=== PATIENT | female | born 1975 | race Caucasian/White ===

== ENCOUNTER → 2017-04-17 | Outpatient (CLI) | payer OTHER | LOC: FIMAGING 14:05 | PROVIDERS: ATTEND Obstetrics & Gynecology | DX: N85.4 Malposition of uterus (principal); D25.1 Intramural leiomyoma of uterus ==

== ENCOUNTER → 2017-06-18 | Outpatient (CLI) | payer OTHER ==
[~2017-06-18] MED LIST: GADOBUTROL 10 ML VIAL IVP ONE
== END ==
LOC: FIMAGING 15:55
PROVIDERS: ATTEND Radiology Diagnostic Radiology
DX: R10.2 Pelvic and perineal pain (principal); D25.9 Leiomyoma of uterus, unspecified
CPT/HCPCS: A9585

== ENCOUNTER 2017-12-04 07:26 | Observation (INO) | payer OTHER ==
[2017-12-04] MEDS ORDERED: NALOXONE HCL 0.4 MG/ML INJ IVP PRN ×2 (07:29→07:48)
[2017-12-04] MEDS ORDERED: HEPARIN 10,000 UNIT/10 ML MDV (1,000 UNIT/ML) IVP PRN (07:29)
[2017-12-04] MEDS ORDERED: KETOROLAC 30 MG/1 ML SDV IVP ONE (07:29)
[2017-12-04] MEDS ORDERED: FLUMAZENIL 0.5 MG/5 ML MDV IVP PRN (07:29)
[2017-12-04] MEDS ORDERED: MIDAZOLAM 2 MG/2 ML VIAL IVP PRN (07:29)
[2017-12-04] MEDS ORDERED: DEXAMETHASONE 10 MG/ML VIAL IVP ONE (07:29)
[2017-12-04] MEDS ORDERED: SCOPOLAMINE HYDROBROMIDE 1 MG/3 DAYS PATCH TD ONE ×2 (07:29→07:37)
[2017-12-04] MEDS ORDERED: PROTAMINE SULFATE 50 MG/5 ML VIAL IVP PRN (07:29)
[2017-12-04] MEDS ORDERED: fentaNYL 100 MCG/2 ML INJ IVP PRN (07:29)
[2017-12-04] MEDS ORDERED: ALTEPLASE 2 MG VIAL IVP PRN (07:29)
[2017-12-04] MEDS ORDERED: MEPERIDINE 25 MG/ML SYR IVP PRN (07:29)
[2017-12-04] MEDS ORDERED: NS 1,000 ML IV ONE (07:29)
[2017-12-04] MEDS ORDERED: GLUCAGON HCL 1 MG VIAL IVP PRN (07:29)
[2017-12-04] MEDS ORDERED: KETOROLAC 15 MG/1 ML SDV ONE (07:37)
[2017-12-04] MEDS ORDERED: DEXAMETHASONE 10 MG/ML VIAL ONE (07:37)
[2017-12-04] MEDS ORDERED: HYDROmorphONE/DILAUDID 6 MG/30 ML PCA IV PRN (07:48)
[2017-12-04] MEDS ORDERED: IOPAMIDOL (ISOVUE-300) 100 ML BTL ONE ×2 (08:02→14:22)
[2017-12-04] MEDS ORDERED: fentaNYL 100 MCG/2 ML INJ ONE (09:09)
[2017-12-04] MEDS ORDERED: FLUMAZENIL 0.5 MG/5 ML MDV IVP ONE (09:09)
[2017-12-04] MEDS ORDERED: MIDAZOLAM 2 MG/2 ML VIAL ONE ×2 (09:09→09:10)
--- NOTE | 2017-12-04 09:24 | PDGENHP ---
History & Physical Chief Complaint: UTERINE FIBROIDS. History of Present Illness: HEAVY MENSTRATION. Pertinent Past, Social, Family History: 2006 ENDOMETRIOSIS WITH URETERAL REPAIR. LT HIP POST TRAUMATIC SWELLING. Relevant Physical Exam: NO PAIN. IN NO DISTRESS. Cardiorespiratory Assessment: RRR, CTA
--- NOTE | 2017-12-04 09:25 | PDPROPOC ---
Sedation Plan of Care Sedation Plan of Care: vital signs stable, mental status noted, patient educated of risks, benefits, alternatives, patient can tolerate sedation ASA Classification: ASA 2 Planned drugs: fentanyl, midazolam Mallampati Score: Class 2 Mallampati Reference Image: Patient passed 3-3-2 rule?: Yes
[2017-12-04] MEDS ORDERED: DEXMEDETOMIDINE HCL 200 MCG in NS 50 ML IV ONE (10:00)
[2017-12-04] MEDS ORDERED: POLYETHYLENE GLYCOL 3350 17 GM PKT PO PRN (13:26)
[2017-12-04] MEDS ORDERED: PROMETHAZINE HCL 25 MG/ML INJ IVP PRN (13:26)
[2017-12-04] MEDS ORDERED: MAGNESIUM HYDROXIDE 30 ML UDCUP PO PRN (13:26)
[2017-12-04] MEDS ORDERED: LACTULOSE 20 GM/30 ML UDCUP PO PRN (13:26)
[2017-12-04] MEDS ORDERED: BISACODYL 10 MG SUPP PR PRN (13:26)
[2017-12-04] MEDS ORDERED: NS 1,000 ML IV SCH (13:30)
--- NOTE | 2017-12-04 13:36 | PDRADPN ---
Radiology Procedure Note Date of Procedure: 12/04/17 Radiologist: Tea Room Anesthesia: IV Sedation Pre-op Diagnosis: symptomatic fibroids Post-op Diagnosis: same Indication: pain and bleeding Procedure: uterine artery embolization; hypogastric nerve block Finding(s): see procedure report. Inf/Abcess present in the surg proc area at time of surgery?: No
[2017-12-04] MEDS: KETOROLAC 30 MG/1 ML SDV IVP SCH (18:31)
[2017-12-04] MEDS: SENNOSIDES/DOCUSATE SODIUM TAB PO SCH (22:16)
[2017-12-05] MEDS: KETOROLAC 30 MG/1 ML SDV IVP SCH ×2 (00:12→05:56)
[2017-12-05] MEDS: ONDANSETRON 4 MG/2 ML VIAL IVP PRN ×2 (02:19→10:23)
[2017-12-05] MEDS: oxyCODONE IR 5 MG TAB PO PRN ×2 (06:00→14:12)
[2017-12-05] MEDS ORDERED: levOFLOXACIN 500 MG/DEXTROSE 100 ML IV ONE (09:00)
[2017-12-05] MEDS ORDERED: IBUPROFEN 600 MG TAB PO SCH (12:00)
[2017-12-05] MEDS: SENNOSIDES/DOCUSATE SODIUM TAB PO SCH (16:48)
--- NOTE | 2017-12-05 17:14 | SOAPPROG ---
SOAP Progress Note Assessment/Plan: Assessment: POD#1 UFE Plan: D/C to home 12/05/17 17:11 Subjective: 10/10 pain overnight with nausea/vomiting. This morning pain significantly improved 4/10 with no more vomiting, tolerating PO. Nausea controlled with PO meds. Lau out. Ambulating. Objective: . Vital Signs Temp Pulse Resp BP Pulse Ox 36.6 C 68 14 165/98 H 98 12/05/17 13:40 12/05/17 13:40 12/05/17 13:40 12/05/17 13:40 12/05/17 13:40 12/04/17 12/05/17 12/06/17 05:59 05:59 05:59 Intake Total 2040 700 Output Total 1200 600 Balance 840 100 . - Time Spent With Patient Time Spent With Patient: . - Pending Discharge Pending Discharge Within 24 Hours: Yes Pending Discharge Within 48 Hours: Yes Pending Discharge Date: 12/05/17 Pending Discharge Time: 18:00 ICD10 Worksheet Patient Problems: Problems Problem Status Onset Uterine fibroid Acute - ICD10 Problem Qualifiers (1) Uterine fibroid
[2017-12-05 18:26] VITALS: BP 150/92
[2017-12-06] MEDS ORDERED: BUPIVACAINE 0.5% 30 ML SDV ONE (20:57)
[2017-12-06] MEDS ORDERED: LIDOCAINE 1% 300 MG/30 ML SDV ONE (20:57)
--- NOTE | 2017-12-21 10:09 | GDS ---
ADMISSION DIAGNOSES: Dysmenorrhea. Pelvic pain. PROCEDURE PERFORMED: Uterine artery embolization December 04, 2017. HOSPITAL COURSE: Patient did very well post uterine artery embolization for symptomatic uterine fibr oids. The patient was admitted for pain control. She had good relief from hypogastric block for the first 8-10 hours. There was some difficulty getting the pain under control after the block wore off . The patient eventually was weaned off [employer] pump, was able to tolerate pain management on p.o. medic ations, and was at that point discharged home. DISCHARGE MEDICATIONS: A prescription of OxyIR, 10 mg tablets, take half to 1 every 4 hours p.r.n. p ain, dispense #20 was given to the patient. DISCHARGE INSTRUCTIONS: Including scheduled ibuprofen regimen discussed with the patient and her hus band. Both expressed understanding. No additional discharge medications. DISCHARGE CONDITION: Stable. DISPOSITION: Home. FOLLOWUP: 1. Interventional Radiology will follow up with the patient within the next week or two. 2. Routine followup with primary care doctor as previously scheduled. /[id number]/MODL
== END 2017-12-05 17:00 | disposition home or self-care (01) ==
LOC: FIMAGING 07:26 → F3E 13:26 → FOB 15:00
PROVIDERS: ADMIT Radiology Diagnostic Radiology; ATTEND Radiology Diagnostic Radiology
DX: D25.1 Intramural leiomyoma of uterus (principal); D25.0 Submucous leiomyoma of uterus; R11.2 Nausea with vomiting, unspecified; G89.18 Other acute postprocedural pain
CPT/HCPCS: 36247; 37243; 64425; 75736; 76937; 99152; 99153; C1769; C1894; G0378; C1760; J1100; J1170; J1644; J1885; J1956; J2250; J2310; J2405; J2550; J3010; Q9967

== ENCOUNTER → 2018-03-24 | Outpatient (CLI) | payer OTHER | LOC: FIMAGING 08:27 | PROVIDERS: ATTEND Obstetrics & Gynecology | DX: D25.1 Intramural leiomyoma of uterus (principal); R39.12 Poor urinary stream ==